=== PATIENT | female | born 1990 | race Caucasian/White ===

== ENCOUNTER 2019-04-02 16:28 | Emergency (ER) | payer OTHER, SELFPAY ==
[2019-04-02 16:36] VITALS: BP 121/65; PULSE 81; RESP 16; TEMP 36.8; O2SAT 97
--- NOTE | 2019-04-02 18:03 | ED.EAR ---
HPI - Ear Problem <IVELISSE Ying - Last Filed: 04/02/19 18:09> General Chief complaint: Ear Stated complaint: muffled hearing, right ear, achy Time Seen by Provider: 04/02/19 16:37 Source: patient Mode of arrival: Ambulatory Limitations: no limitations History of Present Illness HPI Narrative: The patient is a 28-year-old female nonsmoker who denies any pertinent medical history presents with a chief complaint of right ear pain that has been going on and off for the past few days. She has taken 1 dose of Sudafed a day for the past 2 days. She denies any fevers nausea vomiting or diarrhea. She denies any chest pain or cough. She denies any shortness of breath. She denies any left ear pain. She denies sore throat. Related Data Previous Rx's Medication Instructions Recorded fluticasone propionate [Flonase 1 spray NASAL BID 14 Days #9.9 ml 04/02/19 Allergy Relief] Allergies Allergy/AdvReac Type Severity Reaction Status Date / Time No Known Drug Allergies Allergy Verified 04/02/19 16:41 Review of Systems <IVELISSE Ying - Last Filed: 04/02/19 18:09> Review of Systems Narrative: GENERAL: Denies chills, fatigue, malaise, fever, sweats. HEENT: See HPI RESPIRATORY: Denies dyspnea, cough, wheezing, hemoptysis, sputum. CARDIOVASCULAR: Denies chest pain, palpitations, orthopnea, edema, GASTROINTESTINAL: Denies nausea, vomiting, abdominal pain, diarrhea, constipation, melena. : Denies dysuria, frequency, incontinence, hematuria, urinary retention. MUSCULOSKELETAL: denies weakness, joint pain, or bony pain SKIN: Denies rash, skin lesions, or other NEUROLOGIC: Denies weakness, headache, numbness, change in speech, confusion, seizures, incoordination. PSYCHIATRIC: No concerning psychosocial issues. 12 point review of systems is negative except for those stated above Exam <IVELISSE Ying - Last Filed: 04/02/19 18:09> Narrative Exam Narrative: GENERAL: This is a well-nourished, well-developed patient, in no acute distress HEAD: Atraumatic. Normocephalic. No temporal or scalp tenderness. EYES: Pupils equal round and reactive. Extraocular motions intact. No scleral icterus. No injection or drainage. ENT: Nose without bleeding, purulent drainage or septal hematoma. Throat without erythema, tonsillar hypertrophy or exudate. Uvula midline. Airway patent. Bilateral TMs bulging, but no erythema. Bilateral ear canals within normal limits. NECK: Trachea midline. No JVD or lymphadenopathy. Supple, nontender, no meningeal signs. CARDIOVASCULAR: Regular rate and rhythm without murmurs, gallops, or rubs. RESPIRATORY: Clear to auscultation. Breath sounds equal bilaterally. No wheezes, rales, or rhonchi. No cough. No increased respiratory effort. No accessory muscle use GASTROINTESTINAL: Abdomen soft, non-tender, nondistended. No hepato-splenomegaly, or palpable masses. No guarding. EXTREMITIES: No clubbing, cyanosis, or edema. No joint tenderness, effusion, or edema noted. BACK: Nontender without deformity or crepitance. No flank tenderness. NEURO: AOx3. SKIN: No rash or erythema. Initial Vital Signs Initial Vital Signs: Vital Signs Temperature 98.3 F 04/02/19 16:36 Pulse Rate 81 04/02/19 16:36 Respiratory Rate 16 04/02/19 16:36 Blood Pressure 121/65 04/02/19 16:36 Pulse Oximetry 97 04/02/19 16:36 <Lisa Chan MD - Last Filed: 04/02/19 19:38> Initial Vital Signs Initial Vital Signs: Vital Signs Temperature 98.3 F 04/02/19 16:36 Pulse Rate 81 04/02/19 16:36 Respiratory Rate 16 04/02/19 16:36 Blood Pressure 121/65 04/02/19 16:36 Pulse Oximetry 97 04/02/19 16:36 Course <NSAIR Ying-BC - Last Filed: 04/02/19 18:09> Vital Signs Vital signs: Vital Signs - 8 hr 04/02/19 16:36 Temperature 98.3 F Pulse Rate 81 Respiratory Rate 16 Blood Pressure 121/65 Pulse Oximetry 97 <Lisa Chan MD - Last Filed: 04/02/19 19:38> Vital Signs Vital signs: Vital Signs - 8 hr 04/02/19 16:36 Temperature 98.3 F Pulse Rate 81 Respiratory Rate 16 Blood Pressure 121/65 Pulse Oximetry 97 Medical Decision Making <Nory Hodges, SENIOR ARCHITECT-BC - Last Filed: 04/02/19 18:09> [facility] Narrative Medical decision making narrative: The patient is a 28-year-old female who presents with a chief complaint of right ear pain. She has no evidence of infection on evaluation. She has no signs of systemic illness, no fever and is hemodynamically stable. On exam she has evidence of eustachian tube dysfunction, so I discussed at length the use of nasal rinse, Flonase, [id number] Sudafed. I encouraged follow-up with primary care provider in the next few days. Discussed at length coming back to the emergency department for any acute concerns such as chest pain or shortness of breath. No questions or concerns upon discharge. Patient states understanding of return precautions as well as follow-up care. Discharge Plan Departure Patient Disposition: Home Clinical Impression: Eustachian tube dysfunction Qualifiers: Laterality: right Qualified Code(s): H69.81 - Other specified disorders of Eustachian tube, right ear Acute otalgia Qualifiers: Laterality: right Qualified Code(s): H92.01 - Otalgia, right ear Discharge Date/Time: 04/02/19 17:05 Instructions: DI for Eustachian Tube Dysfunction-Adult, DI for Ear Pain-Adult Activity Restrictions/Additional Instructions: Your exam does not indicate any infection today. Please use nasal rinse such as Mikal med sinus rinse or Neti pot twice a day. I have given you a prescription for Flonase. Please use this twice a day. I suggest use of Sudafed or another decongestant. These medications will hopefully treat your eustachian tube dysfunction and help prevent the necessity of antibiotics. Please follow up with primary care provider in a few days. Please monitor for fever, vomiting or signs of systemic illness. Prescriptions: New fluticasone propionate [Flonase Allergy Relief] 50 mcg/actuation spray,suspension 1 spray NASAL BID 14 Days Qty: 9.9 RF: 0 Referrals: [facility] [place] [Provider Group]
== END 2019-04-02 17:05 | disposition home or self-care (01) ==
PROVIDERS: Emergency Provider Nurse Practitioner Family
DX: H69.81 Other specified disorders of Eustachian tube, right ear (principal); H92.01 Otalgia, right ear
CPT/HCPCS: 99282